=== PATIENT | female | born 1995 | race African-American/Black ===

== ENCOUNTER 2016-10-17 14:38 | Emergency (ER) | payer OTHER ==
[~2016-10-17] VITALS: Ht 172.7 cm; Wt 90.7 kg
[2016-10-17 15:22] VITALS: BP 115/58
--- NOTE | 2016-10-17 15:39 | PHYS DOC ---
Past Medical History Past Medical History: No Pertinent History Past Surgical History: Smoking: Less than 1pk/day Alcohol Use: None Drug Use: None Adult General Chief Complaint Chief Complaint: FOOT INJURY PAIN HPI HPI Patient is a 21 year old female who presents with right foot pain after injury last night. She states that she was stepping off of a curb and twisted her foot. She has been ambulatory with a limp today. She has not taken any pain medication today. She does not have a PCP. Review of Systems Review of Systems Constitutional: Denies fever or chills. [] Musculoskeletal: Denies back pain. Reports right foot pain and swelling. Integument: Denies rash or skin lesions. Denies laceration or abrasion. Reports ecchymosis of the right foot. Neurologic: Denies focal weakness or sensory changes. [] Allergies Allergies Allergies Coded Allergies Type Severity Reaction Last Updated Verified No Known Drug Allergies 02/02/15 No Physical Exam Physical Exam Constitutional: Well developed, well nourished, no acute distress, non-toxic appearance. [] HENT: Normocephalic, atraumatic, oropharynx moist. [] Eyes: PERRLA, EOMI, conjunctiva normal, no discharge. [] Skin: Warm, dry, no erythema, no rash. There is mild ecchymosis and swelling of the right lateral foot. Extremities: Right lateral foot tenderness, ROM decreased mildly due to pain, mild right lateral foot edema. 2+ DP and PT pulses. Less than 2 second capillary refill distally in the toes. Light touch sensation intact distally in the toes. There is no tenderness in the ankle or proximal fibula. Neurologic: Alert and oriented X 3, normal motor function, normal sensory function, no focal deficits noted. [] Psychologic: Affect normal, judgement normal, mood normal. [] Current Patient Data Vital Signs Vital Signs Date Time Temp Pulse Resp B/P Pulse Ox O2 Delivery O2 Flow Rate FiO2 10/17/16 15:22 99 77 18 98 Room Air 99.0 Lab Values Laboratory Tests Test 10/17/16 15:40 Urine Test Negative (NEG) EKG EKG [] Radiology/Procedures Radiology/Procedures REASON: twisted foot stepping off a curb, lateral pain & swelling NEG PREG TEST PROCEDURE: FOOT RIGHT 3V Exam performed: Right foot 3 views. Clinical Indication: Patient twisted foot stepping off a car last night, complaining of foot pain. Date of Service:10/17/16. Comparison :None available Findings: PA, oblique and lateral radiographs of the foot reveal the osseous structures to be intact and well aligned. The joint spaces are well preserved and the articular margins are smooth. Impression: Radiographically normal osseous structures of the right foot. Course & Med Decision Making Course & Med Decision Making Pertinent Labs and Imaging studies reviewed. (See chart for details) Patient presents with right foot pain after twisting injury yesterday. On exam, she is neurovascularly intact without evidence of compartment syndrome. X-ray does not show any acute fractures or dislocations. She is discharged home with an Shahzad wrap and crutches. She is given a prescription for Ultram. She is given contact information for orthopedics for follow-up. Return precautions were discussed. She verbalizes understanding and agrees with plan. Dragon Disclaimer Dragon Disclaimer This electronic medical record was generated, in whole or in part, using a voice recognition dictation system. Departure Departure Impression: Primary Impression: Foot sprain Disposition: HOME, SELF-CARE Condition: STABLE Referrals: KIMO HACKETT II, MD Patient Instructions: Foot Sprain-Brief Additional Instructions: Your x-ray did not show any broken bones or dislocation. Please wear the provided Shahzad wrap as needed. Use the provided crutches for assistance with walking until you are able to bear weight on the foot. Please take the prescribed pain medication as directed. Do not drive or operate heavy machinery while taking the pain medication. Please follow-up with the orthopedic doctor listed below if your pain continues. Return to the emergency department if he has any new or concerning symptoms. Scripts Tramadol Hcl (Ultram)50 Mg [id number] Mg PO Q6H PRN PAIN #20 TAB Prov:COMPA ARCHULETA 10/17/16 Problem Qualifiers Primary Impression: Foot sprain Encounter type: initial encounter Laterality: right Qualified Code: S93.601A - Unspecified sprain of right foot, initial encounter COMPA ARCHULETA Oct 17, 2016 15:39
[2016-10-17 15:57] LABS: NEG OBC UR NEG; POS OBC UR POS
--- NOTE | 2016-10-17 16:09 | RAD ---
Exam performed: Right foot 3 views. Clinical Indication: Patient twisted foot stepping off a car last night, complaining of foot pain. Date of Service:10/17/16. Comparison :None available Findings: PA, oblique and lateral radiographs of the foot reveal the osseous structures to be intact and well aligned. The joint spaces are well preserved and the articular margins are smooth. Impression: Radiographically normal osseous structures of the right foot.
[2016-10-17] MEDS ORDERED: TRAM-29 PO (16:21)
== END 2016-10-17 16:32 | disposition home or self-care (01) ==
LOC: ER 14:38
DX: S93.601A Unspecified sprain of right foot, initial encounter (principal); F17.210 Nicotine dependence, cigarettes, uncomplicated; W22.8XXA Striking against or struck by other objects, initial encounter; Y93.89 Activity, other specified; Y92.89 Other specified places as the place of occurrence of the external cause; Y99.8 Other external cause status
CPT/HCPCS: 73630; 81025; 99285

== ENCOUNTER 2021-07-29 12:24 | Emergency (ER) | payer SELFPAY ==
[~2021-07-29] VITALS: Ht 175.3 cm; Wt 100.1 kg
[~2021-07-29 12:24] MED LIST: TRAM-48 PO
[2021-07-29] MEDS ORDERED: HYDROcodone/APAP 5/325MG 1 TAB TABLET PO ONE (14:00)
[2021-07-29] MEDS ORDERED: LIDOCAINE 2% Multi-Dose 20 ML VIAL. IJ ONE (14:00)
--- NOTE | 2021-07-29 14:00 | PHYS DOC ---
Past Medical History Past Medical History: No Pertinent History Past Surgical History: Smoking Status: Current Some Day Smoker Alcohol Use: None Drug Use: None General Adult EDM: Chief Complaint: ABSCESS HPI: HPI: Patient is a 26 year old female who presents with 4 days of pain with bowel movement, with urinating or coughing. States she has a cyst type tender lump that was on the outside of her rectum. She denies blood in her stool abdominal pain, nausea, vomiting, diarrhea, urinary symptoms, rectal intercourse, constipation, chest pain, shortness of breath, fever, abnormal discharge from the rectum. She denies any other past medical history. Rates her pain an 8 out of 10. Review of Systems: Review of Systems: Constitutional: Denies fever or chills. [] Eyes: Denies change in visual acuity. [] HENT: Denies nasal congestion or sore throat. [] Respiratory: Denies cough or shortness of breath. [] Cardiovascular: Denies chest pain or edema. [] GI: Denies abdominal pain, nausea, vomiting, bloody stools or diarrhea. + Rectal pain [] : Denies dysuria. [] Musculoskeletal: Denies back pain or joint pain. [] Integument: Denies rash. + Rectal tender bump [] Neurologic: Denies headache, focal weakness or sensory changes. [] Endocrine: Denies polyuria or polydipsia. [] Lymphatic: Denies swollen glands. [] Psychiatric: Denies depression or anxiety. [] Heart Score: C/O Chest Pain: No Allergies: Allergies: Allergies Coded Allergies Type Severity Reaction Last Updated Verified No Known Drug Allergies 02/02/15 No Physical Exam: PE: Constitutional: Well developed, well nourished, no acute distress, non-toxic appearance. [] HENT: Normocephalic, atraumatic, bilateral external ears normal, oropharynx moist, no oral exudates, nose normal. [] Eyes: PERRLA, EOMI, conjunctiva normal, no discharge. [] Neck: Normal range of motion, no tenderness, supple, no stridor. [] Cardiovascular:Heart rate regular rhythm, no murmur [] Lungs & Thorax: Bilateral breath sounds clear to auscultation [] Abdomen: Bowel sounds normal, soft, no tenderness, no masses, no pulsatile masses. [] Skin: Warm, dry, no erythema, no rash. Nondraining thrombosed rectal hemorrhoid to the external rectum that is tender and nickel sized [] Back: No tenderness, no CVA tenderness. [] Extremities: No tenderness, no cyanosis, no clubbing, ROM intact, no edema. [] Neurologic: Alert and oriented X 3, normal motor function, normal sensory function, no focal deficits noted. [] Psychologic: Affect normal, judgement normal, mood normal. [] EKG: EKG: [] Radiology/Procedures: Radiology/Procedures: [] Course & Med Decision Making: Course & Med Decision Making Pertinent Labs and Imaging studies reviewed. (See chart for details) See HPI. Alert and oriented x4. Ambulatory steady gait. Skin pink warm and dry. Nickel sized thrombosed hemorrhoid to the external rectum at approximately 5:00. No drainage from the rectum. Tender. No cellulitis. Afebrile. Rectal Exam: Normal tone, No mass, Positive control, thrombosed rectal hemorrhoid Stool: N/A Guaiac: N/A 2% lidocaine used to numb the area and with an eleven blade a very small incision was made. A clot was relieved from the hemorrhoid and the hemorrhoid immediately shrink down. She tolerated well. [] Dragon Disclaimer: Dragon Disclaimer: This electronic medical record was generated, in whole or in part, using a voice recognition dictation system. Departure Departure Impression: Primary Impression: Thrombosed external hemorrhoid Disposition: HOME / SELF CARE / HOMELESS Condition: STABLE Referrals: NO PCP (PCP) DEEDEE LOZANO MD Patient Instructions: Hemorrhoids, Sitz Bath Additional Instructions: Follow-up with your primary care or general surgeon if needed. Use medication as directed. You begin having any kind of foul discharge from the area return to the emergency room. Try to keep the areas clean as you can. Scripts Hydrocortisone (ANUSOL-HC) 30 Gm Cream..g. 1 MELVI TP TID for 10 Days, #30 GM 0 Refills APPLY TO THE OUTER RECTUM OVER HEMORRHOID Prov: MIKY JAMES APRN 07/29/21 MIKY JAMES APRN Jul 29, 2021 14:00
[2021-07-29] MEDS ORDERED: HYDR30CR61 TP (14:40)
[2021-07-29 15:19] VITALS: BP 127/63
== END 2021-07-29 15:19 | disposition home or self-care (01) ==
LOC: ER 12:50
DX: K64.5 Perianal venous thrombosis (principal); F17.200 Nicotine dependence, unspecified, uncomplicated; Z98.890 Other specified postprocedural states
CPT/HCPCS: 46083; 99284

== ENCOUNTER 2021-11-11 11:37 | Emergency (ER) | payer OTHER ==
[~2021-11-11] VITALS: Ht 175.3 cm; Wt 101.6 kg
[~2021-11-11 11:37] MED LIST changes: +HYDR30CR61 TP
[2021-11-11] MEDS ORDERED: fentaNYL PF VIAL 100 MCG/2 ML VIAL IVP ONE ×2 (12:45→13:30)
[2021-11-11] MEDS ORDERED: IOHEXOL 300 MG/ML 100ML VIAL. IV ONE (13:00)
[2021-11-11] MEDS ORDERED: CONTRAST GIVEN. MC PRN (13:00)
--- NOTE | 2021-11-11 13:08 | PHYS DOC ---
Past Medical History Past Medical History: No Pertinent History Past Surgical History: No Surgical History Smoking Status: Current Every Day Smoker Alcohol Use: Occasionally Drug Use: None General Adult EDM: Chief Complaint: DENTAL PROBLEM HPI: HPI: Patient is a 26 year old female who presents with 3-day history of right-sided dental pain. Patient states today, she has had a sore throat and painful swallowing. She is able to swallow solids and liquids, but it is painful. Patient denies difficulty breathing, cough, fever, chills. Review of Systems: Review of Systems: ROS negative or noncontributory except as mentioned in HPI. Heart Score: C/O Chest Pain: No Current Medications: Current Medications Medications (Trade) Dose Ordered Sig/Edwina Start Time Stop Time Status Last Admin Dose Admin Fentanyl Citrate (Fentanyl 2ml Vial) 50 mcg 1X ONCE 11/11/21 12:45 11/11/21 12:46 DC 11/11/21 12:53 50 MCG Info (CONTRAST GIVEN -- Rx MONITORING) 1 each PRN DAILY PRN 11/11/21 13:00 11/13/21 12:59 Iohexol (Omnipaque 300 Mg/ml) 70 ml 1X ONCE 11/11/21 13:00 11/11/21 13:01 DC Allergies: Allergies: Allergies Coded Allergies Type Severity Reaction Last Updated Verified No Known Drug Allergies 07/29/21 No Physical Exam: PE: Constitutional: Well developed, well nourished, no acute distress, non-toxic appearance. HENT: Normocephalic, atraumatic, bilateral external ears normal, oropharynx moist, poor dentition, rearmost molar on the mandible infected with surrounding erythema without fluctuance, tonsils 1+ bilaterally, nose normal. Eyes: EOMI, conjunctiva normal, no discharge. Neck: Normal range of motion, left side tender with submandibular and anterior cervical adenopathy, patient able to speak and tolerate her own secretions, no stridor, trachea midline. Skin: Warm, dry, no erythema, no rash. Extremities: No tenderness, no cyanosis, no clubbing, ROM intact, no edema. Neurologic: Alert and oriented x4, steady and symmetrical upright gait, no focal deficits noted. Current Patient Data: Vital Signs: Vital Signs Date Time Temp Pulse Resp B/P (MAP) Pulse Ox O2 Delivery O2 Flow Rate FiO2 11/11/21 12:53 16 99 11/11/21 11:51 97.8 79 136/82 (100) Room Air 97.8 Radiology/Procedures: Radiology/Procedures: PROCEDURE: CT SOFT TISSUE NECK W/CONTRAST CT NECK SOFT TISSUE WITH IV CONTRAST History:Reason: dental pain, swollen R side neck / Spl. Instructions: omni 300 70ml / History: Technique: CT imaging was performed of the neck soft tissues with intravenous contrast. Coronal and sagittal reconstructions were performed. Exposure: One or more of the following individualized dose reduction techniques were utilized for this examination: 1. Automated exposure control 2. Adjustment of the mA and/or kV according to patient size 3. Use of iterative reconstruction technique. Comparison: None Findings: Partially erupted right posterior maxillary molar with periapical lucency. This significant adjacent perimandibular swelling. No fluid collection to suggest abscess. Mildly prominent palatine and adenoid tonsils.. Normal appearance of the laryngeal structures. Normal appearance of the bilateral submandibular and parotid glands. Unremarkable thyroid gland. No pathologic lymphadenopathy. Imaged lung apices are unremarkable. Secretions within the maxillary sinuses with scattered mucosal thickening. Mastoid air cells are clear. Imaged orbits and intracranial contents are unremarkable. Sclerotic lesion within the left C6 vertebral body measures 1.3 x 1.1 cm, most likely bone island. Impression: 1. Right posterior partially erupted mandibular with surrounding periapical lucency, may indicate periodontal disease. No adjacent perimandibular soft tissue swelling. 2. Mildly prominent palatine and adenoid tonsils. Electronically signed by: Presley Wu DO (11/11/2021 1:27 PM) [facility] Course & Med Decision Making: Course & Med Decision Making Pertinent Labs and Imaging studies reviewed. (See chart for details) Patient is an 26-year-old female who presents with dental pain that started 3 days ago. She now has painful swallowing and swelling in the right side of her neck. Soft tissue CT scan with IV contrast ordered to evaluate for abscess. CT imaging negative for abscess or other signs of airway compromise. Patient will be discharged home with electronic prescription for antibiotics as well as pain medication. Resources for dental clinics and return precautions provided. Patient should follow-up with dentistry within the next week. She understands a nd is agreeable to discharge plan. Christiana Disclaimer: Christiana Disclaimer: This electronic medical record was generated, in whole or in part, using a voice recognition dictation system. Departure Departure Impression: Primary Impression: Infected dental caries Additional Impression: Sore throat Disposition: HOME / SELF CARE / HOMELESS Condition: STABLE Referrals: NO PCP (PCP) Patient Instructions: Dental Caries Additional Instructions: EMERGENCY DEPARTMENT GENERAL DISCHARGE INSTRUCTIONS Thank you for coming to [facility] Emergency Department (ED) today and trusting us with you care. We trust that you had a positive experience in our Emergency Department. If you wish to speak to the department management, you may call the director at . YOUR FOLLOW UP INSTRUCTIONS ARE FOLLOWS: 1. Follow up with your primary care doctor. If you do not have a primary doctor, please ask for a resource list of physicians or clinics that may be able to assist you with follow up care. 2. The emergency provider has interpreted your imaging studies, if any were ordered. The radiology instrument repair specialist also reviewed them. If there is a change in the findings, you will be notified in 48 hours when at all possible. 3. If a lab test or culture has been done, your results will be reviewed and you will be notified if you need a change in treatment. 4. Follow instructions verbalized to you and refer to the printouts if needed. ADDITIONAL INSTRUCTIONS AND INFORMATION: 1. Your care today has been supervised by a physician who is specially trained in emergency care. Many problems require more than one evaluation for a complete diagnosis and treatment. We recommend that you schedule your follow up appointment as recommended to ensure complete treatment of you illness or injury. If you are unable to obtain follow up care and continue to have a problem, or if your condition worsens, we recommend that you return to the ED. 2. We are not able to safely determine your condition over the phone nor are we able to give sound medical advice over the phone. For these safety reasons, if you call for medical advice we will ask you to come to the ED for further evaluation. 3. If you have any questions regarding these discharge instructions please call the ED at . SAFETY INFORMATION: In the interest of safety, wellness, and injury prevention; we encourage you to wear your seat belt, if you smoke; quite smoking, and we encourage family to use a protective helmet for bicycling and other sporting events that present an increased risk for head injury. IF YOUR SYMPTOMS WORSEN OR NEW SYMPTOMS DEVELOP, OR YOU HAVE CONCERNS ABOUT YOUR CONDITION; OR IF YOUR CONDITION WORSENS WHILE YOU ARE WAITING FOR YOUR FOLLOW UP APPOINTMENT; EITHER CONTACT YOUR PRIMARY CARE DOCTOR, THE PHYSICIAN WHOSE NAME AND NUMBER YOU WERE GIVEN, OR RETURN TO THE ED IMMEDIATELY. Scripts Tramadol Hcl (TRAMADOL HCL) 50 Mg Tablet 50 MG PO PRN Q6-8HRS PRN for PAIN, #10 TAB 0 Refills Prov: MARVIN ELLIOTT 11/11/21 Amoxicillin/Potassium Clav (AMOX TR-K CLV 875-125 MG TAB) 1 Each Tablet 1 TAB PO BID, #20 TAB Prov: MARVIN ELLIOTT 11/11/21 MARVIN ELLIOTT Nov 11, 2021 13:07
--- NOTE | 2021-11-11 13:30 | RAD ---
CT NECK SOFT TISSUE WITH IV CONTRAST History:Reason: dental pain, swollen R side neck / Spl. Instructions: omni 300 70ml / History: Technique: CT imaging was performed of the neck soft tissues with intravenous contrast. Coronal and s agittal reconstructions were performed. Exposure: One or more of the following individualized dose reduction techniques were utilized for thi s examination: 1. Automated exposure control 2. Adjustment of the mA and/or kV according to patient size 3. Use of iterative reconstruction technique. Comparison: None Findings: Partially erupted right posterior maxillary molar with periapical lucency. This significant adjacent perimandibular swelling. No fluid collection to suggest abscess. Mildly prominent palatine and adenoid tonsils.. Normal appearance of the laryngeal structures. Normal appearance of the bilateral submandibular and parotid glands. Unremarkable thyroid gland. No pathol ogic lymphadenopathy. Imaged lung apices are unremarkable. Secretions within the maxillary sinuses with scattered mucosal thickening. Mastoid air cells are wolfgang r. Imaged orbits and intracranial contents are unremarkable. Sclerotic lesion within the left C6 vertebral body measures 1.3 x 1.1 cm, most likely bone island. Impression: 1. Right posterior partially erupted mandibular with surrounding periapical lucency, may indicate pe riodontal disease. No adjacent perimandibular soft tissue swelling. 2. Mildly prominent palatine and adenoid tonsils. Electronically signed by: Presley Wu DO (11/11/2021 1:27 PM) [facility]
[2021-11-11] MEDS ORDERED: AMOX1TAB11 PO (14:07)
[2021-11-11] MEDS ORDERED: TRAM50TA PO (14:08)
[2021-11-11 14:21] VITALS: BP 143/92
== END 2021-11-11 14:22 | disposition home or self-care (01) ==
LOC: ER 11:37
DX: K04.7 Periapical abscess without sinus (principal); J02.9 Acute pharyngitis, unspecified; F17.200 Nicotine dependence, unspecified, uncomplicated
CPT/HCPCS: 70491; 96374; 96376; 99285; J3010; Q9967